=== PATIENT | male | born 1995 | race Hispanic/Latino ===

== ENCOUNTER 2022-07-03 02:08 | Emergency (ER) | payer OTHER ==
[2022-07-03] MEDS ORDERED: Ketorolac Tromethamine 30 MG/ML VIAL ONE (02:25)
== END 2022-07-03 03:10 | disposition home or self-care (01) ==
LOC: BURERS 02:08
DX: S39.012A Strain of muscle, fascia and tendon of lower back, initial encounter (principal); W19.XXXA Unspecified fall, initial encounter
CPT/HCPCS: 72100; 96372; J1885